=== PATIENT | female | born 1935 | race Asian ===

== ENCOUNTER 2017-09-29 11:11 | Emergency (ER) | payer MEDICARE, OTHER ==
[~2017-09-29] VITALS: Ht 154.9 cm; Wt 55.9 kg
[2017-09-29 14:50] VITALS: BP 179/91
== END 2017-09-29 14:50 | disposition home or self-care (01) ==
LOC: ED 11:11
DX: M54.5 Low back pain (principal); I10 Essential (primary) hypertension; E11.9 Type 2 diabetes mellitus without complications; E78.00 Pure hypercholesterolemia, unspecified
CPT/HCPCS: J3010; Q0162

== ENCOUNTER 2020-04-20 17:17 | Inpatient (IN) | payer OTHER, MEDICARE, SELFPAY ==
[~2020-04-20] VITALS: Ht 154.9 cm; Wt 56.4 kg
[2020-04-20 17:18] VITALS: Ht 154.9 cm; Wt 56.4 kg
[2020-04-20 18:17] LABS: CARBON DIOXIDE 28.7 mmol/L (21-32); CHLORIDE SERUM 103 mmol/L (98-107); CREATININE SERUM 0.7 mg/dL (0.6-1.0); GLUCOSE SERUM 134 mg/dL (74-106); SODIUM SERUM 143 mmol/L (136-145)
[2020-04-20 18:21] LABS: ALKALINE PHOSPHATASE 75 U/L (46-116); ALT/SGPT 34 U/L (14-59); AST/SGOT 26 U/L (15-37); BILIRUBIN TOTAL 0.4 mg/dL (0.20-1.00); CHOLESTEROL 144 mg/dL (<200); HDL CHOLESTEROL 39 mg/dL (40-60); TOTAL PROTEIN, SERUM 7.3 g/dL (6.4-8.2)
[2020-04-20 18:24] LABS: ALBUMIN 2.9 g/dL (3.4-5.0)
[2020-04-20 18:35] LABS: BASOPHIL % 0.3 % (0-2); PLATELET COUNT 381 x10^3mcL (130-400)
[2020-04-20 18:38] LABS: RED CELL DISTRIBUTION WIDTH 15.2 % (11.5-14.5)
[2020-04-20 19:16] LABS: UA SPECIFIC GRAVITY 1.015 (1.005-1.035); microscopic required? YES; urine erythrocyte NEGATIVE (NEGATIVE)
[2020-04-20] MEDS ORDERED: MEDI-FIRST IBU200 MG PO (19:51)
[2020-04-20] MEDS ORDERED: ZESTRIL20 MG (19:51)
[2020-04-20 21:06] LABS: CHOLESTEROL/HDL RATIO 3.6; MAGNESIUM 1.6 mg/dL (1.8-2.4); PHOSPHOROUS 2.6 mg/dL (2.5-4.9); T3 TOTAL 0.72 ng/mL
[2020-04-20 21:08] LABS: AMPHETAMINE QUAL UR NONE DETECTED (See below)
[2020-04-20 21:18] LABS: FREE T4 1.18 ng/dL (0.76-1.46); T4(THYROXINE) 5.7 ug/dL (4.7-13.3)
[2020-04-20 22:58] VITALS: BP 173/100
[2020-04-20 23:25] VITALS: BP 153/92
[2020-04-21 00:56] LABS: C REACTIVE PROTEIN 11.9 mg/dL (<=0.9)
[2020-04-21 06:19] VITALS: BP 153/93
[2020-04-21 07:33] LABS: CARBON DIOXIDE 24.3 mmol/L (21-32); CHLORIDE SERUM 105 mmol/L (98-107); CREATININE SERUM 0.6 mg/dL (0.6-1.0); GLUCOSE SERUM 126 mg/dL (74-106); MAGNESIUM 1.7 mg/dL (1.8-2.4); PHOSPHOROUS 2.8 mg/dL (2.5-4.9); POTASSIUM SERUM 3.9 mmol/L (3.5-5.1); SODIUM SERUM 141 mmol/L (136-145)
[2020-04-21 07:56] LABS: BASOPHIL % 1.7 % (0-2); PLATELET COUNT 210 x10^3mcL (130-400)
[2020-04-21 07:57] LABS: RED CELL DISTRIBUTION WIDTH 15.4 % (11.5-14.5)
[2020-04-21 08:40] VITALS: BP 150/78
[2020-04-21 13:27] VITALS: BP 185/105
[2020-04-21 14:15] VITALS: BP 162/85
[2020-04-21 16:34] VITALS: BP 146/80
[2020-04-21 21:23] VITALS: BP 154/91
[2020-04-22 05:45] VITALS: BP 161/65
[2020-04-22 07:23] LABS: CALCIUM 8.6 mg/dL (8.5-10.1); CARBON DIOXIDE 26.5 mmol/L (21-32); CHLORIDE SERUM 105 mmol/L (98-107); CREATININE SERUM 0.8 mg/dL (0.6-1.0); GLUCOSE SERUM 110 mg/dL (74-106); MAGNESIUM 1.6 mg/dL (1.8-2.4); PHOSPHOROUS 2.9 mg/dL (2.5-4.9); POTASSIUM SERUM 3.3 mmol/L (3.5-5.1); SODIUM SERUM 139 mmol/L (136-145)
[2020-04-22 08:45] VITALS: BP 125/78
[2020-04-22 10:34] LABS: PLATELET COUNT 336 x10^3mcL (130-400); RED CELL DISTRIBUTION WIDTH 15.1 % (11.5-14.5)
[2020-04-22 10:35] LABS: BASOPHIL % 0.1 % (0-2)
[2020-04-22 10:37] LABS: PATH REVIEW for HEMA NO
[2020-04-22 13:00] VITALS: BP 136/74
[2020-04-22 17:25] VITALS: BP 112/70
[2020-04-22 22:01] VITALS: BP 133/79
[2020-04-23 06:44] VITALS: BP 144/79
[2020-04-23 06:53] LABS: CALCIUM 8.6 mg/dL (8.5-10.1); CHLORIDE SERUM 102 mmol/L (98-107); CREATININE SERUM 0.9 mg/dL (0.6-1.0); GLUCOSE SERUM 103 mg/dL (74-106); MAGNESIUM 1.5 mg/dL (1.8-2.4); PHOSPHOROUS 2.9 mg/dL (2.5-4.9); POTASSIUM SERUM 3.2 mmol/L (3.5-5.1); SODIUM SERUM 139 mmol/L (136-145)
[2020-04-23 07:25] LABS: BASOPHIL % 0.3 % (0-2); PLATELET COUNT 359 x10^3mcL (130-400)
[2020-04-23 07:46] LABS: RED CELL DISTRIBUTION WIDTH 14.9 % (11.5-14.5)
[2020-04-23 08:52] VITALS: BP 126/82
[2020-04-23 12:16] VITALS: BP 144/77
[2020-04-23 16:12] VITALS: BP 149/86
[2020-04-23 21:15] VITALS: BP 153/89
[2020-04-24 05:10] VITALS: BP 138/74
[2020-04-24 06:58] LABS: PLATELET COUNT 377 x10^3mcL (130-400)
[2020-04-24 07:01] LABS: CALCIUM 8.9 mg/dL (8.5-10.1); CARBON DIOXIDE 27.9 mmol/L (21-32); CHLORIDE SERUM 103 mmol/L (98-107); CREATININE SERUM 0.9 mg/dL (0.6-1.0); GLUCOSE SERUM 102 mg/dL (74-106); MAGNESIUM 1.9 mg/dL (1.8-2.4); PHOSPHOROUS 2.7 mg/dL (2.5-4.9); POTASSIUM SERUM 3.9 mmol/L (3.5-5.1); SODIUM SERUM 139 mmol/L (136-145)
[2020-04-24 07:40] LABS: BASOPHIL % 0 % (0-2); RED CELL DISTRIBUTION WIDTH 15.2 % (11.5-14.5)
[2020-04-24 08:34] VITALS: BP 166/90
[2020-04-24 12:32] VITALS: BP 154/65
[2020-04-24 18:18] VITALS: BP 150/93
[2020-04-24 19:17] VITALS: BP 162/85
[2020-04-25 04:57] VITALS: BP 151/92
[2020-04-25 06:41] LABS: BASOPHIL % 0.2 % (0-2); PLATELET COUNT 386 x10^3mcL (130-400)
[2020-04-25 06:57] LABS: RED CELL DISTRIBUTION WIDTH 15.2 % (11.5-14.5)
[2020-04-25 07:06] LABS: CALCIUM 8.6 mg/dL (8.5-10.1); CARBON DIOXIDE 26.8 mmol/L (21-32); CHLORIDE SERUM 104 mmol/L (98-107); CREATININE SERUM 0.7 mg/dL (0.6-1.0); GLUCOSE SERUM 100 mg/dL (74-106); MAGNESIUM 1.7 mg/dL (1.8-2.4); PHOSPHOROUS 2.6 mg/dL (2.5-4.9); POTASSIUM SERUM 3.7 mmol/L (3.5-5.1); SODIUM SERUM 138 mmol/L (136-145)
[2020-04-25 07:26] VITALS: BP 155/92
[2020-04-25 11:17] VITALS: BP 135/79
[2020-04-25] MEDS ORDERED: CIPRO500 MG PO (13:24)
[2020-04-25 15:19] VITALS: BP 155/91
== END 2020-04-25 21:09 | disposition home health service (06) | DRG 343 ==
LOC: ED 17:17 → DU 20:32
PROVIDERS: Emergency Medicine; ADMIT Internal Medicine
PROC: 0QB13ZX Excision of Sacrum, Percutaneous Approach, Diagnostic (ICD-10-PCS; principal; 2020-04-25)
DX: C41.4 Malignant neoplasm of pelvic bones, sacrum and coccyx (principal); E44.0 Moderate protein-calorie malnutrition; D64.9 Anemia, unspecified; E11.9 Type 2 diabetes mellitus without complications; E78.00 Pure hypercholesterolemia, unspecified; E87.6 Hypokalemia; I10 Essential (primary) hypertension; Z79.899 Other long term (current) drug therapy; Z79.84 Long term (current) use of oral hypoglycemic drugs; Z68.25 Body mass index [BMI] 25.0-25.9, adult; Z03.818 Encounter for observation for suspected exposure to other biological agents ruled out
CPT/HCPCS: 82962; 84439; 85378; 87804; 97112-GP; 97530-GP; A9577; G0378; J0360; J0744; J1644; J1940; J2001; J2405; J2543; J3010; J3370; J3475; J7030; Q0092; Q9967; U0003-CS

== ENCOUNTER 2020-06-09 15:13 | Inpatient (IN) | payer OTHER, MEDICARE ==
[~2020-06-09] VITALS: Ht 154.9 cm; Wt 51.4 kg
[~2020-06-09 15:13] MED LIST: CIPRO500 MG PO; MEDI-FIRST IBU200 MG PO; ZESTRIL20 MG
[2020-06-09 15:36] VITALS: Ht 154.9 cm; Wt 51.4 kg
[2020-06-09 16:14] LABS: PLATELET COUNT 417 x10^3mcL (130-400); RED CELL DISTRIBUTION WIDTH 16.9 % (11.5-14.5)
[2020-06-09 16:15] LABS: BASOPHIL % 3.6 % (0-2)
[2020-06-09 16:36] LABS: CALCIUM 9.5 mg/dL (8.5-10.1); CARBON DIOXIDE 23.4 mmol/L (21-32); CHLORIDE SERUM 96 mmol/L (98-107); CREATININE SERUM 0.6 mg/dL (0.6-1.0); GLUCOSE SERUM 173 mg/dL (74-106); POTASSIUM SERUM 4.3 mmol/L (3.5-5.1); SODIUM SERUM 134 mmol/L (136-145)
[2020-06-09 16:40] LABS: ALKALINE PHOSPHATASE 121 U/L (46-116); ALT/SGPT 35 U/L (14-59); AST/SGOT 36 U/L (15-37); BILIRUBIN TOTAL 0.57 mg/dL (0.20-1.00)
[2020-06-09 16:42] LABS: ALBUMIN 3.1 g/dL (3.4-5.0); TOTAL PROTEIN, SERUM 8.4 g/dL (6.4-8.2)
--- NOTE | 2020-06-09 18:18 | NUR ---
85 YEAR OLD FEMALE BIB DAUGHTER FOR BODY ACHES AND GENERALIZED WEAKNESS. PT REPORTS 1 DAY OF BODY ACHES AND SLIGHT DIZZINESS. PT DENIES ANY COUGH, FEVER, SOB OR CONTACT WITH +COVID PT. PT IS AWAKE, ALERT, RESP E/U, ANSWERING QUESTIONS APPROPRIATELY. PLACED ON FULL CM AND PULSE OX. 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
[2020-06-09] MEDS ORDERED: MICROZIDE12.5 MG (20:34)
[2020-06-09] MEDS ORDERED: FORTAMET500 M1 (20:35)
--- NOTE | 2020-06-09 20:42 | NUR ---
PT A&OX 4 WITH E/U BREATHS, NO ACD NOTED. PT REPORTS PAIN CURRENTLY 8/10 AFTER PAIN MED GIVEN. MEDICATED PER MD ORDERS, SEE EMAR. PT TOLERATED WELL.
[2020-06-09 21:47] LABS: T3 TOTAL 0.8 ng/mL
[2020-06-09 21:48] LABS: FREE T4 1.14 ng/dL (0.76-1.46); FREE THYROXINE INDEX 2.2 ug/dL (1.4-4.5); T4(THYROXINE) 5.6 ug/dL (4.7-13.3)
[2020-06-09 21:56] LABS: AMPHETAMINE QUAL UR NEGATIVE (See below)
--- NOTE | 2020-06-09 22:23 | NUR ---
PT A&OX 4, ASSISTED PT TO CLEAN AFTER BM. PT BM IS FIRM, APPEARS CONSTIPATED.
[2020-06-09 22:42] LABS: CHOLESTEROL/HDL RATIO 4.3; PHOSPHOROUS 3.6 mg/dL (2.5-4.9)
--- NOTE | 2020-06-10 00:23 | NUR ---
PT LINE OCCLUDED, UNABLE TO FLUSHE WITH 10 CC NS. THREE ATTEMPTED IV STARTS. WILL REQUEST ASSISTANCE.
--- NOTE | 2020-06-10 01:00 | NUR ---
PT MEDICATED PER ADMIT MD ORDERS, PT TOLERATED WELL. SEE EMAR. PT REPORTS LEFT LEG JERKING AND CRAMPING. PT STATES THE ADMITTING DOCTOR SAID SHE COULD HAVE MAGNESIUM. WILL CALL ADMITTING
--- NOTE | 2020-06-10 02:38 | NUR ---
PT IS SLEEPING WITH EYES CLOSED IN POC, LYING SUPINE. PT EASILY AWAKEN WHEN WALKING IN THE ROOM. DIMMED LIGHTS FOR ADDED COMFORT.
--- NOTE | 2020-06-10 02:40 | NUR ---
SPOKE WITH LAB, STATED THEY COULD USE U/A SAMPLE FOR REMAINING URINE DRUG AND URINE CULTURE TEST. PER LAB, BLOOD CULTURES PREVIOUSLY ORDERED BY ER DR THEREFORE THEY WOULD CANCEL ADMITTING DOCTOR'S ORDER. PT IS WAITING FOR BED.
--- NOTE | 2020-06-10 03:33 | NUR ---
PT REPORT RECEIVED FROM DIETER FORBES TO ASSUME PT CARE. PT RESTING IN A POSITION OF COMFORT, AOX4, RESP EVEN AND UNLABORED, NO ACUTE DISTRESS NOTED.
--- NOTE | 2020-06-10 04:26 | NUR ---
PT RESTING WITH EYES CLOSED, NO S/S OF DISTRESS NOTED. REPOSITIONS SELF NEEDED.
--- NOTE | 2020-06-10 04:48 | NUR ---
PT REPORT CALLED TO YOLETTE FORBES TO ASSUME PT CARE.
--- NOTE | 2020-06-10 05:06 | NUR ---
PT TRANSFERRED TO [facility] BY [facility] BY MYSELF AND NISA EMT. PT ON FULL CM FOR TRANSPORT. PT IS AOX4, RESP EVEN AND UNLABORED, NO ACUTE DISTRESS NOTED. PT TRANSFERRED FROM [facility] TO BED WITH ASSISTANCE. YOLETTE RN AT BEDSIDE TO ASSUME PT CARE.
[2020-06-10 05:33] VITALS: BP 135/89
--- NOTE | 2020-06-10 05:47 | NUR ---
RECEIVED PT FROM ER VIA [facility] ACCOMPAINED WITH NURSE AND EMT, PT SEEN, ALERT AND ORIENTED X 4, DENIES HEADACHE OR DIZZINESS, BREATHING EVEN AND UNLABORED, LUNG SOUNDS CLEAR ON ROOM AIR WITH SPO2:96%, NO RESP DISTRESS NOTED, ON TELE#44 A-FIB, DENIES CHEST PAIN, IVF INFUSING WELL WITH RFA, PULSES PALPABLE, NO EDEMA NOTED, GENERALIZED WEAKNESS, BASELINE AT HOME IS USING WALKER, ABD SOFT AND FLAT WITH ACTIVE BS, NO BM AT THIS TIME, DENIES ABD PAIN, INCONTINENT, SU CATH CHANGED, OLD SU CATH DRAINING MILKY COLOR OUTPUT, LEFT BUTTOCKS WITH HEALED OPEN PRESSURE INJURY, OPTIFORM APPLIED.
--- NOTE | 2020-06-10 07:12 | NUR ---
GAVE REPORT TO TWILA FORBES. UPDATES PROVIDED, QUESTIONS ANSWERED, ENDORSED CARE.
--- NOTE | 2020-06-10 07:30 | NUR ---
PATIENT RESTED COMFORTABLY THROUGHOUT THE NIGHT. PATIENT REMAINS ON 5L NC, DENIES SOB/CHEST PAIN AT THIS TIME. NO ACUTE CHANGES HAD IN PATIENT'S STATUS SINCE ADMISSIONS. PATIENT HAD INCOTINENCE EPISODES, WAS ABLE TO ASSIST WITH REPOSITIONING IN BED. ALL COMFORT CARE ACCOUNTED FOR AT THIS TIME. BED IN LOWEST POSITION, CALL LIGHT WITHIN REACH. WILL CONTINUE TO MONITOR.
[2020-06-10 08:01] VITALS: BP 125/97
--- NOTE | 2020-06-10 09:17 | NUR ---
PT SITTING UP AT BEDSIDE. RESP EVEN AND UNLABORED. B/P 125/97, HR 118. SCHEDULED MEDS GIVEN AND TOLERATED WELL. DENIES PAIN. CALL LIGHT WITHIN REACH.
[2020-06-10 10:01] LABS: PLATELET COUNT 383 x10^3mcL (130-400)
[2020-06-10 10:06] LABS: RED CELL DISTRIBUTION WIDTH 16.7 % (11.5-14.5)
[2020-06-10 10:07] LABS: ATYPICAL LYMPH 5 %; MONOCYTE 1 % (0-7); SEGMENTED NEUTROPHILS 81 % (37-75)
[2020-06-10 10:08] LABS: PLATELET MORPHOLOGY PLATELETS NORMAL; rbc morphology (normal/abnorm) NORMAL (NORMAL)
[2020-06-10 10:10] LABS: CALCIUM 8.9 mg/dL (8.5-10.1); CARBON DIOXIDE 25.6 mmol/L (21-32); CHLORIDE SERUM 102 mmol/L (98-107); CREATININE SERUM 0.6 mg/dL (0.6-1.0); GLUCOSE SERUM 128 mg/dL (74-106); POTASSIUM SERUM 3.6 mmol/L (3.5-5.1); SODIUM SERUM 137 mmol/L (136-145)
[2020-06-10 10:50] LABS: C REACTIVE PROTEIN 27.7 mg/dL (<=0.9)
[2020-06-10 11:40] VITALS: BP 122/86
--- NOTE | 2020-06-10 12:15 | NUR ---
PT IN BED EATING LUNCH. RESP EVEN AND UNLABORED. DENIE PAIN. CALL LIGHT WITHIN REACH.
--- NOTE | 2020-06-10 13:47 | NUR ---
PT IS AAOX4. TELE 44 IN PLACER READING NSR WITH FIRST DEGREE BLOCK. LUNG SOUND CTA. ON R/A. NO COUGH OR SOB. SU CATH DRAINING YELLOW URINE TO GRAVITY. IVF RUNNING TO RFA, SITE WNL. NO S/S OF INFECTION OR INFILTRATION. PT DENIES PAIN. CALL LIGHT WITHIN REACH.
--- NOTE | 2020-06-10 13:54 | NUR ---
REPORTED TO DR. WOODARD THAT PT'S ADMITTED WITH AFIB AND TRANSITIONED INTO NSR WITH FIRST DEGREE BLOCK. DR. WOODARD ORDERED STAT EKG.
--- NOTE | 2020-06-10 14:26 | NUR ---
REPORTED TO DR. HILL THAT PT WAS ADMITTED IN AFIB AT 0800 TODAY PT IS NOW NSR WITH FIRST DEGREE BLOCK. PT DOES NOT HAVE CARDIAC CONSULT. NO NEW ORDERS AT THIS TIME.
[2020-06-10 14:38] LABS: UA SPECIFIC GRAVITY 1.025 (1.005-1.035); microscopic required? YES; urine erythrocyte 2+ (NEGATIVE)
[2020-06-10 15:47] VITALS: BP 147/82
--- NOTE | 2020-06-10 16:37 | NUR ---
NORCO PO PRN GIVEN FOR GENERALIZED BODY PAIN 05/10. EXTRA FLUIDS GIVEN AND ENCOURAGED. PT REPOSITIONED FOR COMFORT. BS 103 NO INSULIN INDICATED PER RISS. IV FLUIDS REPLENISHED. CALL LIGHT WITHIN REACH.
--- NOTE | 2020-06-10 18:43 | NUR ---
RESP EVEN AND UNLABORED. NO DISTRESS NOTED. SU CATH IN PLACE. PATENT, DRAINING CLEAR YELLOW URINE. IVF RUNNING TO RFA, SITE WNL PT DENIES PAIN. WILL ENDORSE ALL CARE TO NOC RN.
[2020-06-10 20:23] VITALS: BP 154/88
--- NOTE | 2020-06-10 22:38 | NUR ---
SU TO GRAVITY DRAINING WELL , PIV INTACT INFUSING WELL . NO RESP DISTRESS NOTED ,CALL LIGHT WITHIN PT'S REACH .
--- NOTE | 2020-06-11 04:07 | NUR ---
PT'S IN BED WITH EYES CLOSED , TELE SR WITH 1AVB. PIV INTACT INFUSING WELL .
[2020-06-11 05:36] VITALS: BP 140/85
--- NOTE | 2020-06-11 06:21 | NUR ---
NO CHANGES OF CONDITION NOTED, ALL DUE MEDS GIVEN NO REACTION NOTED , PIV INTACT INFUSING WELL , SU TO GRAVITY DRAINING WELL , TELE NSR 1AVB.
--- NOTE | 2020-06-11 07:26 | NUR ---
RECIEVED REPORT FROM [facility] NURSE. PATIENT IS CURRENTLY ON ISOLATION PRECAUTIONS PENDING COVID 19 TEST RESULTS. PATIENT IS CURRENTLY ON ROOM AIR, OXYGEN SATURATION AT 98%. CURRENTLY OBSERVED RESTING IN BED, RESPIRATIONS EQUAL AND UNLABORED WITH SYMMETRICAL CHEST RISE AND FALL. IV INFUSING TO LEFT FOREARM AT 100cc/HOUR. PATIENT CURRENTLY ON ANTIBIOTICS. ALL SAFETY PRECAUTIONS IN PLACE. CALL LIGHT WITHIN REACH. WILL CONTINUE TO PROVIDE CARE FOR PATIENT.
[2020-06-11 07:50] VITALS: BP 156/83
[2020-06-11 11:05] LABS: BASOPHIL % 0.5 % (0-2)
[2020-06-11 11:13] LABS: CALCIUM 8.7 mg/dL (8.5-10.1); CARBON DIOXIDE 27.2 mmol/L (21-32); CHLORIDE SERUM 101 mmol/L (98-107); CREATININE SERUM 0.5 mg/dL (0.6-1.0); GLUCOSE SERUM 139 mg/dL (74-106); MAGNESIUM 1.7 mg/dL (1.8-2.4); PHOSPHOROUS 3.2 mg/dL (2.5-4.9); POTASSIUM SERUM 3.6 mmol/L (3.5-5.1); SODIUM SERUM 137 mmol/L (136-145)
--- NOTE | 2020-06-11 11:13 | NUR ---
SPOKE WITH RESIDENT DOCTOR REGARDING POSSIBLE MEDICATION FOR DVT PROPHYLAXIS GIVEN ELEVATED DDIMER LEVELS. DOCTOR INFORMED NO CHANGE IN ORDERS AT THIS TIME.
[2020-06-11 11:28] VITALS: BP 159/93
[2020-06-11 11:33] LABS: PLATELET COUNT 414 x10^3mcL (130-400); RED CELL DISTRIBUTION WIDTH 16.7 % (11.5-14.5)
--- NOTE | 2020-06-11 13:27 | NUR ---
SPOKE WITH DR. PEREZ REGARDING PATIENT'S DDIMER LEVEL, DR. PEREZ GAVE TELEPHONE ORDER FOR HEPARIN SUBQ Q12.
[2020-06-11 15:56] VITALS: BP 150/90
--- NOTE | 2020-06-11 17:24 | NUR ---
PHONED RESIDENT PHYSICIAN DR. CAMEJO REGARDING PATIENT. PAIN UNCONTROLLED WITH CURRENT MEDICATIONS. NO FURTHER ORDERS FROM PHYSICIAN AT THIS TIME.
--- NOTE | 2020-06-11 18:10 | NUR ---
PATIENT CURRENTLY AWAKE ALERT AND ORIENTED X 4. PATIENT IS CURRENTLY ON ISOLATION PRECAUTIONS PENDING COVID 19 RESULTS. BLOOD CULTURES IN AND NEGATIVE. SPOKE WITH RESIDENT PHYSICIAN REGARDING ELEVATED DDIMER LEVELS- LOVENOX 40 MG Q12 SUBCUTANEOUS ADDED TO TREATMENT PLAN. ALSO SPOKE WITH RESIDENT REGARDING UNCONTROLLED PAIN WITH CURRENT PAIN MEDICATION- NO MEDICATION CHANGES AT THIS TIME. PATIENT CURRENTLY ON ROOM AIR SATURATING AT 97%. SAFETY PRECAUTIONS IN PLACE. CALL LIGHT WITHIN REACH. WILL ENDORSE ALL FURTHER CARE TO THE NOC NURSE.
[2020-06-11 20:30] VITALS: BP 183/103
--- NOTE | 2020-06-11 22:42 | NUR ---
POST NORCO PT DENY PAIN , ON ROOM AIR SAT 98% , BP HIGH MD AWARE .
[2020-06-12] VITALS (8 sets, daily range): BP systolic 124–174; BP diastolic 74–101
--- NOTE | 2020-06-12 05:52 | NUR ---
BP 174/95 DR CHEW AWARE .
--- NOTE | 2020-06-12 07:08 | NUR ---
DR LISA WEST TO GIVE AM MEDS EARLY, ENDORSED TO AM NURSE , TELE NSR 1AVB PIV INTACT INFUSING WELL , SU TO GRAVITY DRAINING WELL .
--- NOTE | 2020-06-12 07:13 | NUR ---
RECIEVED REPORT FROM [facility] NURSE. PATIENT REMAINS ON ISOLATION PRECAUTIONS PENDING COVID-19 TEST RESULTS. PATIENT ON ROOM AIR THROUGHOUT THE NIGHT SATURATING ABOVE 90%. LOVENOX ON BOARD FOR DVT PROPHYLAXIS. PATIENT HYPERTENSIVE THROUGHOUT THE NIGHT, WILL ADMINISTER ANTIHYPERTENSIVE MEDICATIONS PER EMAR. NO SIGNIFICANT CHANGES THROUGHOUT THE NIGHT. SAFETY PRECAUTIONS IN PLACE, CALL LIGHT WITHIN REACH. WILL CONTINUE TO PROVIDE CARE FOR PATIENT.
[2020-06-12 07:45] LABS: CALCIUM 8.9 mg/dL (8.5-10.1); CARBON DIOXIDE 25.1 mmol/L (21-32); CHLORIDE SERUM 102 mmol/L (98-107); CREATININE SERUM 0.5 mg/dL (0.6-1.0); GLUCOSE SERUM 107 mg/dL (74-106); MAGNESIUM 1.7 mg/dL (1.8-2.4); PHOSPHOROUS 3.6 mg/dL (2.5-4.9); POTASSIUM SERUM 3.2 mmol/L (3.5-5.1); SODIUM SERUM 137 mmol/L (136-145)
[2020-06-12 08:05] LABS: BASOPHIL % 0.6 % (0-2)
[2020-06-12 08:25] LABS: PLATELET COUNT 420 x10^3mcL (130-400); RED CELL DISTRIBUTION WIDTH 16.7 % (11.5-14.5)
--- NOTE | 2020-06-12 13:43 | NUR ---
SPOKE WITH RESIDENT DR. KEENAN REGARDING PATIENT'S POSITIVE URINE CULTURE FOR E.COLI, PATIENT CURRENTLY ON ROCEPHIN FOR ANTIBIOTIC TREATMENT WHICH IS RESISTANT TO E. COLI. DR. TIJERINA. NO CHANGE IN ORDERS AT THIS TIME.
[2020-06-12] MEDS ORDERED: NOR5 PO (13:55)
[2020-06-12] MEDS ORDERED: HYD25 PO (13:55)
[2020-06-12] MEDS ORDERED: BACTRIM1 TAB PO (13:58)
--- NOTE | 2020-06-12 18:18 | NUR ---
PATIENT IS CURRENTLY AWAKE ALERT AND ORIENTED TO PERSON PLACE TIME AND REASON FOR STAY. NO REPORT OF PAIN THROUGHOUT SHIFT. POTASSIUM 3.3 THIS MORNING AND WAS REPLACED WITH 40 MEQ PO POTASSIUM PER EMAR AND PHYSICIAN ORDER. PATIENT ON ROOM AIR THROUGHOUT SHIFT. DISCHARGE PAPERWORK SIGNED AND PLACED IN CHART. SPOKE WITH PATIENT'S DAUGHTER, DAUGHTER EPIFANIO IS UNABLE TO BRUSH AND BROOM CLIPPER THE PATIENT TODAY, BUT CAN PICK HER UP TOMORROW. RESIDENT PHYSICIAN DR. KEENAN AWARE. WILL ENDORSE ALL FURTHER CARE TO THE [facility] NURSE.
--- NOTE | 2020-06-12 20:00 | NUR ---
PT A/A/O X3, DENIES DIZZINESS AND HEADACHE. BREATH SOUNDS CLEAR. BREATHING EVEN AND UNLABORED ON ROOM AIR, SPO2 96%. DENIES CHEST PAIN AND PRESSURE. BOWEL SOUNDS ACTIVE. NO C/O N/V AND ABD PAIN. NEW IV PLACED ON THE LEFT WRIST 22G. PT TOLERATED IV INSERTION WELL. SU CATH IN PLACE AND DRAINING TO GRAVITY WITH YELLOW URINE. OPTIFOAM NOTED ON THE LEFT BUTTOCKS. MADE PT COMFORTABLE. PLACED CALL LIGHT WITH IN REACH. WILL CONTINUE TO MONITOR.
--- NOTE | 2020-06-12 23:20 | NUR ---
REPORT GIVEN TO BOSTON FORBES REGARDING PT. PT TRANSFERED TO ROOM 239-A.
--- NOTE | 2020-06-12 23:22 | NUR ---
RECIEVED PT RESTING IN BED WITH NO ACUTE DISTRESS NOTED AT THIS TIME, PT DENIES PAIN OR SOB AT THIS TIME, SU IN PLACE DRAINING CLEAR YELLOW URINE, IV TO THE LEFT WRIST, DRESSING CDI, LUNG SOUNDS DIMINISHED TO BLL, RESPIRATIONS EVEN AND UNLABORED ON RA, SAFETY PRECAUTIONS IN PLACE, WILL CONTINUE TO MONITOR.
[2020-06-13 06:19] VITALS: BP 160/91
--- NOTE | 2020-06-13 06:39 | NUR ---
PT BP 160/91, CALLED DR BRADFORD, SAID OK TO GIVE 0900 HYDROCHLOROTHIAZIDE NOW, ADMINISTERED, WILL CONTINUE TO MONITOR
--- NOTE | 2020-06-13 06:47 | NUR ---
PT RESTED COMFORTABLY THROUGH NIGHT WITH NO ACUTE DISTRESS NOTED, PT DENIED PAIN THROUGH CARE, SU CARE PROVIDED THIS AM, PT IS STABLE AT THIS TIME,ALL PT NEEDS ATTENDED TO, WILL CONTINUE TO MONINTOR AND ENDORSE CARE
--- NOTE | 2020-06-13 07:05 | NUR ---
RECIEVED PT RESTING IN BED WITH NO C/O PAIN OR DISTRESS. A/O X4 WITH NO CAVAZOS OR DIZZINESS. TELE#44 CONNECTED TO PT AND DENIES ANY CP OR PRESSURE. LUNG SOUNDS DIMINISHED AND PT FOUND ON RA WITH NO SOB NOTED. SU CATHETER IN PLACE AND DRAINING YELLOW URINE, UCX POSITIVE FOR ECOLI, CURRENTLY ON ABT. DENIES ANY BURNING. NS 100ML/HR RUNNING IN RIGHT WRIST, CDI AND PATENT. SAFETY PRECAUTIONS IN PLACE, CALL LIGHT WITHIN REACH, WILL MONITOR.
[2020-06-13 08:04] LABS: BASOPHIL % 0.5 % (0-2)
[2020-06-13 08:15] LABS: CALCIUM 9.1 mg/dL (8.5-10.1); CARBON DIOXIDE 27.8 mmol/L (21-32); CHLORIDE SERUM 98 mmol/L (98-107); CREATININE SERUM 0.5 mg/dL (0.6-1.0); GLUCOSE SERUM 100 mg/dL (74-106); MAGNESIUM 2.3 mg/dL (1.8-2.4); PHOSPHOROUS 3.6 mg/dL (2.5-4.9); POTASSIUM SERUM 3.5 mmol/L (3.5-5.1); SODIUM SERUM 135 mmol/L (136-145)
[2020-06-13 08:45] VITALS: BP 169/102
[2020-06-13 08:47] LABS: PLATELET COUNT 413 x10^3mcL (130-400); RED CELL DISTRIBUTION WIDTH 16.7 % (11.5-14.5)
--- NOTE | 2020-06-13 12:07 | NUR ---
MADE DR KEENAN AWARE OF PT HYPERTENSION AND NEED FOR PRN, ALSO MADE AWARE THAT PT HAS NOT PASSED BM SINCE 06/11. WILL NOTE AND CARRY OUT ANY NEW ORDERS.
[2020-06-13 13:09] VITALS: BP 150/89
--- NOTE | 2020-06-13 13:40 | NUR ---
PT STABLE TO DISCHARGE PER MD ORDER. HYRALOSINE GIVEN PER EMAR FOR SBP>160, VS WNL AT THIS TIME. ALL DISCHARGE INSTRUCTIONS, EDUCATION, AND PRESCRIPTIONS GIVEN TO PT AND SHE VERBALIZES UNDERSTANDING. WOUND PICTURE TAKEN AND PUT IN CHART. IV REMOVED WITH CATHETER INTACT, NO REDNESS OR INFLAMMATION NOTED TO SITE. SU CATHETER REMOVED. PT BEING TRANSPORTED HOME VIA TRANSPORTATION COMPANY. FAMILY MADE AWARE.
--- NOTE | 2020-06-13 14:00 | NUR ---
SPOKE WITH EPIFANIO, PTS DAUGHTER AND NOTIFIED HER OF DISCHARGE INSTRUCTIONS AND THAT PT IS BEING TRANSPORTED HOME BY [facility]. DISCHARGE PACKET GIVEN TO TRANSPORT COMPANY TO GIVE TO DAUGHTER. ALL PARTIES VERBALIZE UNDERSTANDING.
== END 2020-06-13 14:10 | disposition home or self-care (01) | DRG 466 ==
LOC: ED 15:13 → MU 20:30 → DU 06-10 05:31
PROVIDERS: Emergency Medicine; ADMIT Family Medicine; ATTEND Family Medicine
DX: T83.518A Infection and inflammatory reaction due to other urinary catheter, initial encounter (principal); A41.9 Sepsis, unspecified organism; E44.1 Mild protein-calorie malnutrition; N13.6 Pyonephrosis; E11.9 Type 2 diabetes mellitus without complications; R32 Unspecified urinary incontinence; E78.00 Pure hypercholesterolemia, unspecified; E78.5 Hyperlipidemia, unspecified; I51.7 Cardiomegaly; Y83.9 Surgical procedure, unspecified as the cause of abnormal reaction of the patient, or of later complication, without mention of misadventure at the time of the procedure; Z68.23 Body mass index [BMI] 23.0-23.9, adult; Z20.828 Contact with and (suspected) exposure to other viral communicable diseases
CPT/HCPCS: 82962; 83880; 84439; 85378; G0378; J0696; J1650; J1815; J1885; J2185; J3475; J7030; J7042; J7060; Q0092; U0003-CS